=== PATIENT | male | born 2000 | race African-American/Black ===

== ENCOUNTER 2022-02-24 20:14 | Emergency (ER) | payer SELFPAY ==
[~2022-02-24] VITALS: Ht 177.8 cm; Wt 81.7 kg
[2022-02-24 20:20] VITALS: BP 131/76
[2022-02-24] MEDS ORDERED: HYDROcodone-ACET 5/325MG TAB PO ONE (20:45)
== END 2022-02-25 02:01 | disposition home or self-care (01) ==
LOC: EDSEX 20:14 → EDBD 20:14 → ER 20:14
DX: R07.89 Other chest pain (principal); J45.909 Unspecified asthma, uncomplicated; F12.10 Cannabis abuse, uncomplicated
CPT/HCPCS: 93005